=== PATIENT | female | born 1945 | race Caucasian/White ===

== ENCOUNTER 2024-10-26 05:40 | Emergency (ER) | payer OTHER ==
[~2024-10-26] VITALS: Ht 170.2 cm; Wt 113.6 kg
[2024-10-26 05:40] VITALS: BP 0/0; PULSE 0; RESP 0; TEMP 96.7; O2SAT 0
--- NOTE | 2024-10-26 06:05 | ED.PDOC ---
History of Present Illness HPI Comments 78 y/o F is BIBA for cardiac arrest, today. Per EMS report, initial call for patient was stated to have been for a sudden and unprovoked, witnessed syncope and fall from a standing position at home by family. Patient was commented to have been found on scene agonally breathing, while wedged between her bed and the floor, unresponsive, with a SpO2 of 79% RA, pulse rate of 45, blood pressure of 60/30, and a blood glucose of 90 and no signs of trauma or injury. Patient was then commented to have been placed on a non-rebreather mask and paced en route before losing pulse at around 0535. CPR was then endorsed on being initiated, immediately, with 1x dose of epinephrine administered at 0536. Upon arrival to ED at 0538, care was resumed by ED staff. Patient is further stated by EMS to have an unspecified, extensive cardiac history and ESRD, with pending initial HD session next week by family on scene. Further history cannot be obtained, due to patient's current condition and absence of family/reeling operator upon initial encounter. Chief Complaint: Cardiac arrest Time Seen by MD: 05:49 Reviewed Notes: Nurses Notes, Private Branch Exchange Service Adviser Notes, Medications, Allergies Information Source: Patient, Emergency Med Personnel Mode of Arrival: EMS Severity: Moderate Timing: Hours Duration: Since onset Prehospital treatment: 12 Lead EKG, Accucheck, Leader Assembler, CPR, Other (1xepinephrine, NRB, I/O left tibia) Past Medical History PAST MEDICAL HISTORY: ESRD Past Medical History (Other): unspecified cardiac histoyr Surgical History (Other): ileostomy bag PRODUCER ASSISTANT History: Denies all PRODUCER ASSISTANT Hx Family History Family History: Unknown Social History Smoker: Non-Smoker Alcohol: Denies ETOH Use Drugs: Denies Drug Use Lives In: Home All Other Systems: Reviewed and Negative (see HPI) Physical Exam General Appearance: Other (CPR in progress) HEENT: NOT DONE Neck: NOT DONE Respiratory: NOT DONE Cardiovascular: NOT DONE Breast Exam: Deferred Gastrointestinal: Other (colostomy bag in RLQ) Genitalia: Deferred Pelvic: Deferred Rectal: Deferred Extremities: NOT DONE Neurologic: NOT DONE Cerebellar Function: NOT DONE Reflexes: NOT DONE Skin: NOT DONE Lymphatic: NOT DONE Was a procedure done? Was a procedure done?: No Differential Dx Considerations may include: cardiopulmonary arrest X-Ray, Labs, Meds, VS Vital Signs Date Time Temp Pulse Resp B/P (MAP) Pulse Ox O2 Delivery O2 Flow Rate FiO2 10/26/24 06:20 Ambu-Bag 10/26/24 05:40 96.7 0 0 0/0 (0) 0 96.7 TOD 0550 Time of 1ST Reevaluation: 05:50 Reevaluation 1ST: Patient Education/Counseling: Other (patient ) Family Education/Counseling: Prognosis Departure 1 Departure Time of Disposition: 05:01 (Patient presented in cardiac arrest. ACLS per protocol. Patient ultimately ) Impression: Primary Impression: Cardiac arrest Disposition: 20 Condition: Other () Critical Care Note Critical Care Time?: No Stability Stability form required: No Heart Score Heart Score: Heart Score Response (Comments) Value History N/A 0 EKG N/A 0 Age N/A 0 Risk Factors N/A 0 Troponin N/A 0 Total 0 I personally scribed for DARREN GODWIN MD ([email or web address]) on 10/26/24 at 06:05. Electronically submitted by Mono Drummond [email or web address]). DARREN GODWIN MD Oct 26, 2024 06:05
--- NOTE | 2024-10-26 06:20 | RESUS ---
CODE BLUE ASSESSSMENT History of Events History of Events: PER EMS, PATIENT HAD A SYNCOPAL EPISODE AND WAS FOUND UNRESPONSIVE BY FAMILY. UPON EMS ARRIVAL, PATIENT HAD A PULSE AT 30BPM. EMS STARTED TRANSDERMAL PACING AND STARTED MANUAL VENTILATION. EN ROUTE, PATIENT LOST PULSES 5 MINUTES BEFORE ARRIVAL TO ED. CPR WAS STARTED EN ROUTE. 1 EPI WAS GIVEN. CPR IN PROGRESS UPON EMS ARRIVAL. PER EMS, PATIENT WAS IN PEA. Initial Information Date: Oct 26, 2024 Time: 05:38 Location of Arrest: In Field Arrest Witnessed: Yes CPR started initial time: 05:33 CPR started by whom: EMS Last seen well: 0500 Pre-Hospital Care: ACLS Type of arrest: Cardiac, Respiratory, Witnessed Spontaneous Respirations: No Pulse Present: No Monitoring: ECG, Pulse Oximetry, Apnea, Capnography Crash Cart Opened and Supplies: Yes Airway Ventilation Breathing at Onset: Agonal Oxygen Delivery Method: Ambu-Bag Artificial Ventilation: N/A Procedure - Intraosseous Size of intraosseous: 20 Site of Intraosseous: Tibia aaron-medial Intraosseous inserted by: EMS Number of attempts for Intraos: 1 Comment: IO INSERTED BY EMS Medications & Response Medications and Responses : ADULT Medications Given ADULT: Epinephrine 1 mg, Sodium Bacarbinate 50 meq, Magnesium Sulfate 2 gm, Calcium Chloride 10 mL Route of Administration: IO Medication Comment: [id number] BICARB-[id number] CALCIUM-0542 EPI-0543 MAG 2 [id number]-[id number] EPI-0546 EKG Rhythm: Asystole Pacing Pacer Pads Applied and Pacing: Yes Pulse Present with Pacing: No Nurses Notes [place] Coma Scale Eye Opening: None (1) [place] Coma Scale Verbal: None (1) [place] Coma Scale Motor: None (1) [place] Total: GCS 3 Pupil Reaction: Non Reactive Bedside Blood Glucose: 79 EKG Rhythm: Asystole Time Code Ended Post Arrest Status: Outcome of code: Unsuccessful Patient pronounced by: DR. GODWIN Time patient pronounced: 05:50 Family notified: Yes Attending called: Yes Code Team Present: ADDISON RAMIREZ RN, NYASIA RN, JOSE DE JESUS MAJOR, LETHA ERT, YUSUF RESIDENT, JIL GARZA, EDUARDO RN, Jose De Jesus Fry Oct 26, 2024 06:20
== END 2024-10-26 05:50 ==
LOC: ER 05:40 → EDBD 05:40 → ER 05:50
DX: I46.9 Cardiac arrest, cause unspecified (principal); N18.6 End stage renal disease
CPT/HCPCS: 92950